=== PATIENT | male | born 1970 | race Caucasian/White ===

== ENCOUNTER → 2020-05-12 09:09 | Outpatient (CLI) | payer BC, SELFPAY | PROVIDERS: PCP Family Medicine; Visit Provider Family Medicine | DX: Z20.822 Contact with and (suspected) exposure to COVID-19 (principal) | CPT/HCPCS: U0003 ==

== ENCOUNTER → 2021-04-29 10:14 | Outpatient (CLI) | payer BC, SELFPAY | PROVIDERS: PCP Family Medicine; Visit Provider Family Medicine | DX: U07.1 COVID-19 (principal) | CPT/HCPCS: C9803; U0003; U0005 ==

== ENCOUNTER 2023-08-11 12:36 | Day surgery (SDC) | payer BC, SELFPAY ==
--- NOTE | 2023-07-28 16:01 | SUR.PREOP ---
Spoke to patient to verify date and time of procedure. Also verified mailing address and preferred pharmacy. Jd sent to [facility] in [place]
[2023-08-09 11:39] VITALS: BMI 33.5
[2023-08-11] MEDS: LACTATED RINGERS 1000ML 1,000 ML 25 ML IV (13:06)
[2023-08-11 13:07] VITALS: BP 163/86; PULSE 66; RESP 18; TEMP 36.6; O2SAT 99
[2023-08-11 13:19] LABS: POC Glucose,Bedside 85 (70-110)
--- NOTE | 2023-08-11 13:46 | P.PNANES_ITS ---
[facility] Disclaimer: The information contained in this section may have been updated after the patient was seen, as this information can be updated by other users. Medical History History of COVID-19 History of gastroesophageal reflux (GERD) Diabetes mellitus, type 2 Hypertension Hyperlipidemia Edema Surgical History (Updated 08/11/23 @ 13:16 by Ligia Clemens RN) No history of previous surgery Family History Other Colon cancer Social History Smoking Status: Never smoker second hand exposure: No alcohol intake: never substance use type: denies use current occupational status: employed Travel in the last 8 weeks: None adopted: No caregiver/support person: No foster care: No household members: significant other housing: apartment lives independently: Yes marital status: common-law marriage [facility] Anesthesia Checklist Patient Identification Patient Identification: Verbal (Name & ) Structural Data Admitted From: Home Planned Operative Procedure/s: colonoscopy Consent for Planned Operative Procedure(s) Verified: Yes Airway Assessment Mallampati Score:: Class II C-Spine Mobility Assessed: Yes TMJ Mobility Assessed: Yes Dentition: Poor Dentition Neurological Assessment Level of Consciousness: Awake, Alert and Appropriate Anesthesia Plan Anesthesia Risk discussed: Yes Anesthesia Plan: Verified ASA Class: II Anesthesia Type: MAC
[2023-08-11 14:02] VITALS: O2SAT 99
[2023-08-11 14:23] VITALS: BP 124/75; PULSE 62; RESP 18; TEMP 36.2; O2SAT 96
--- NOTE | 2023-08-11 14:28 | HMH.SCOPE ---
Procedure: Date: 08/11/23 Patient Date of :: 1970 Procedure Performed:: Screening colonoscopy Indications:: +Cologuard Performing Provider:: Gigi Cole MD Referring Provider:: Maria Esther Cole APRN Sedation:: Propofol Procedure:: After placing the patient in the left lateral decubitus position, the colonoscopy was gently inserted into the rectum and under direct visualization advanced to the cecum which was identified by transillumination in the right lower quadrant, identification of the ileocecal valve, appendiceal orifice, and cecal strap. Color, texture, mucosa, and anatomy of the colon were carefully examined with the scope. Findings:: Anal canal: normal Rectum: normal Sigmoid colon: normal without polyps or inflammatory changes Descending colon: normal without polyps or inflammatory changes Splenic flexure: normal Transverse colon: normal without polyps or inflammatory changes Hepatic flexure: normal Ascending colon: normal without polyps or inflammatory changes Cecum: normal Terminal ileum: not visualized Impression: Normal colonoscopy Recommendations:: Follow up examination in about TEN years or so, sooner if clinically indicated. Complications:: None Estimated blood obtained (mL): 0 Colonoscopy Component Colonoscopy Component Was a colonoscopy performed during today's procedure?: Yes Recommended follow up colonoscopy of at least 10 years?: Yes
[2023-08-11 14:33] VITALS: BP 140/72; PULSE 62; RESP 18; TEMP 36.2; O2SAT 99
[2023-08-11 14:43] VITALS: BP 135/70; PULSE 70; RESP 18; TEMP 36.2; O2SAT 99
== END 2023-08-11 15:08 | disposition home or self-care (01) ==
PROVIDERS: PCP Family Medicine; Visit Provider Internal Medicine Gastroenterology
PROC: 0DJD8ZZ Inspection of Lower Intestinal Tract, Via Natural or Artificial Opening Endoscopic (ICD-10-PCS; CPT 45378; principal; 2023-08-11 14:00)
DX: R19.5 Other fecal abnormalities (principal); E11.9 Type 2 diabetes mellitus without complications
CPT/HCPCS: 45378; 82962

== ENCOUNTER 2024-05-16 08:28 | Outpatient (CLI) | payer BC, SELFPAY | END 2024-05-16 23:59 | disposition home or self-care (01) | LOC: LAB.DROPOF 05-18 08:29 | PROVIDERS: PCP Family Medicine; Visit Provider Nurse Practitioner | DX: B35.1 Tinea unguium (principal) | CPT/HCPCS: 87102; 87206; 87220 ==